=== PATIENT | male | born 1960 | race Caucasian/White ===

== ENCOUNTER 2017-10-05 08:02 | Outpatient (CLI) | payer BC ==
--- NOTE | 2017-10-05 10:08 | MRI ---
NONCONTRAST MRI CERVICAL SPINE: DATE: 10/05/17. HISTORY: Cervical radiculopathy. Neck pain with left arm radiculopathy. Pain for 1 year which is worsening. COMPARISON: None available. FINDINGS: Paravertebral soft tissues have normal signal intensity and demonstrate a normal MRI appearance. Normal signal intensity is demonstrated in the bone marrow. Limited visualized bas of the brain as well as cervicomedullary junction demonstrate a normal MRI nadira earance. C1-2 level: There is no disk bulge or disk herniation Central spinal canal and neural foramen are p atent. C2-3 level: There is no disk bulge or disk herniation Central spinal canal and neural foramen are p atent. C4-5 level: There is minimal disk-osteophyte complex, but the central spinal canal and neural forame n are patent. There is slight effacement of the ventral subarachnoid space. C5-6 level: There is loss of intervertebral disk height. There is a broad-based disk-osteophyte com plex which narrows the ventral subarachnoid space and encroaches on the anterior aspect of the spinal cord. There is mild bilateral neural foraminal narrowing greater on the left. C6-7 level: There is loss of intervertebral disk height. There is a broad-based disk-osteophyte. T here is a broad-based disk-osteophyte complex with resultant mild to moderate narrowing of the centra l spinal canal. There is mild left and mild to moderate right-sided neural foraminal narrowing. C7-T1 level: There is no significant disk bulge or disk herniation. Central spinal canal and neural foramen are patent. T1-2 level: There is minimal disk bulge which narrows the ventral subarachnoid space. Axial imaging was not obtained at this level, but on sagittal images neural foramina do appear patent with only mi nimal encroachment on the right neural foramen. IMPRESSION: Mild degenerative disk changes in the cervical spine greatest at the C6-7 level. POS: GHISLAINE
== END 2017-10-05 08:03 | disposition home or self-care (01) ==
LOC: SCSMRI 08:02
PROVIDERS: ATTEND Family Medicine
DX: M47.22 Other spondylosis with radiculopathy, cervical region (principal)
CPT/HCPCS: 72141

== ENCOUNTER 2019-05-19 07:44 | Outpatient (CLI) | payer BC ==
--- NOTE | 2019-05-19 08:39 | MRI ---
EXAM: MRI lumbar spine without contrast HISTORY: Back pain COMPARISON: None TECHNIQUE: Multiple planar multisequence MR images were obtained of the lumbar spine without contrast . FINDINGS: The vertebral bodies and intervertebral discs demonstrate normal height and alignment without fractur e or subluxation. The prevertebral and paraspinal soft tissues are unremarkable. Endplate degenerative changes are seen surrounding L4/5 and L5/S1. The conus medullaris terminates normally at T12/L1. T12/L1: No significant posterior bulge or protrusion. No posterior facet arthrosis. No central tiffany l stenosis. No neural foraminal stenosis L1/2: No significant posterior bulge or protrusion. No posterior facet arthrosis. No central canal stenosis. No neural foraminal stenosis L2/3: A small central protrusion is seen. Mild bilateral posterior facet arthrosis. Moderate centra l canal stenosis. Mild bilateral neural foraminal stenosis L3/4: Small generalized concentric disc bulge. Mild bilateral posterior facet arthrosis. No central canal stenosis. Mild bilateral neural foraminal stenosis L4/5: A small disc osteophyte complex is seen. Mild bilateral posterior facet arthrosis. No central canal stenosis. Moderate right and mild left neural foraminal stenosis L5/S1: A small disc osteophyte complexes associated with a small central protrusion. Mild bilateral posterior facet arthrosis. Mild central canal stenosis. Moderate bilateral neural foraminal stenosis IMPRESSION: Degenerative changes of the lumbar spine as above.
== END 2019-05-19 07:45 | disposition home or self-care (01) ==
LOC: TBSIIMAG 07:44
PROVIDERS: ATTEND Neurological Surgery
DX: M47.26 Other spondylosis with radiculopathy, lumbar region (principal)
CPT/HCPCS: 72148

== ENCOUNTER 2020-07-29 13:00 | Inpatient (IN) | payer BC ==
[2020-08-09 12:31] VITALS: BMI 35.9
[2020-08-10] MEDS ORDERED: Sodium Chloride 0.9% 100 ML ONE (06:56)
[2020-08-10] MEDS ORDERED: Tranexamic Acid 1,000 MG/10 ML VIAL ONE (06:56)
[2020-08-10] MEDS ORDERED: VANCOMYCIN 2 GRAM/400 ML BAG 2 GM in Premix Bag 1 BAG IVPB SCH (07:00)
[2020-08-10] MEDS ORDERED: Fentanyl 100 MCG/2 ML VIAL ONE ×3 (07:47→09:57)
[2020-08-10] MEDS ORDERED: Midazolam HCl 2 mg/2 ml Vial ONE (07:47)
[2020-08-10] MEDS ORDERED: PROPOFOL 200 MG/20 ML VIAL ONE (09:23)
[2020-08-10] MEDS ORDERED: Bupivacaine HCl 0.5%/Epinephrine 1:200,000/PF 30 ml Vial ONE (09:23)
[2020-08-10] MEDS ORDERED: Rocuronium Bromide 10 MG/ML (10ML VIAL) ONE (09:23)
[2020-08-10] MEDS ORDERED: Ondansetron PF 4 MG/2 ML Vial ONE (09:23)
[2020-08-10] MEDS ORDERED: ePHEDrine 50 MG/ML VIAL ONE (09:23)
[2020-08-10] MEDS ORDERED: Ketorolac Tromethamine 30 MG/ML VIAL ONE (09:23)
[2020-08-10] MEDS ORDERED: Dexamethasone 20 MG/5 ML VIAL ONE (09:23)
[2020-08-10] MEDS ORDERED: traMADol HCl 50 MG TAB PO PRN (11:34)
[2020-08-10] MEDS ORDERED: Promethazine HCl 25 MG/ML VIAL IM PRN ×2 (11:34→11:37)
[2020-08-10] MEDS ORDERED: diphenhydrAMINE 25 MG CAP PO PRN (11:34)
[2020-08-10] MEDS ORDERED: HYDROcodone/Acetaminophen 10/325 mg Tablet PO PRN (11:34)
[2020-08-10] MEDS ORDERED: Zolpidem Tartrate 5 MG TAB PO PRN (11:34)
[2020-08-10] MEDS ORDERED: Acetaminophen 325 MG TAB PO PRN (11:34)
[2020-08-10] MEDS ORDERED: Ondansetron PF 4 MG/2 ML Vial IVP PRN (11:34)
[2020-08-10] MEDS ORDERED: Promethazine HCl 25 MG/ML VIAL SLOW IVP PRN (11:37)
[2020-08-10] MEDS ORDERED: Ondansetron HCl/PF 4 MG/2 ML Vial IVP PRN (11:37)
[2020-08-10] MEDS: CEFAZOLIN 2 GM in Premix Bag 1 BAG IVPB SCH ×2 (17:28→22:38)
[2020-08-10] MEDS: Senokot S 8.6-50 MG TAB PO SCH (20:06)
[2020-08-10] MEDS: Atorvastatin Calcium 40 MG TAB PO SCH (20:06)
[2020-08-10] MEDS: Ferrous Gluconate 324 MG TAB PO SCH (20:06)
[2020-08-10] MEDS: Aspirin 81 mg Enteric Coated Tablet PO SCH (20:06)
[2020-08-11 05:06] LABS: Hemoglobin 11.6 g/dL (14.0-18.0); Mean Corpuscular HGB CONC 34.2 g/dL (32.0-36.0); Mean Corpuscular Hemoglobin 30.7 pg (27.0-31.0); Mean Corpuscular Volume 89.8 fL (78.0-98.0); Mean Platelet Volume 7.4 fL (7.4-10.4); Platelet Count 215 thou/uL (130-400); RBC Distribution Width 12.2 % (11.5-14.5); Red Blood Cell (RBC) Count 3.78 mill/uL (4.70-6.10)
[2020-08-11] MEDS: Aspirin 81 mg Enteric Coated Tablet PO SCH ×3 (08:34→19:32)
[2020-08-11] MEDS: Multivitamin W/ Minerals 1 TAB PO SCH (08:35)
[2020-08-11] MEDS: Fish Oil 1,000 MG CAP PO SCH (08:35)
[2020-08-11] MEDS: Vit A,C & E/Lutein/Minerals Tablet PO SCH (08:35)
[2020-08-11] MEDS: Cholecalciferol 1,000 UNITS (25 MCG) TAB PO SCH (08:35)
[2020-08-11] MEDS: Senokot S 8.6-50 MG TAB PO SCH ×2 (08:35→19:32)
[2020-08-11] MEDS: Losartan 25 MG TAB PO SCH (08:36)
[2020-08-11] MEDS: Folic Acid 1 MG TAB PO SCH (08:36)
[2020-08-11] MEDS: Ferrous Gluconate 324 MG TAB PO SCH ×2 (08:36→19:32)
[2020-08-11] MEDS: Cyanocobalamin (Vitamin B-12) 1,000 MCG TAB PO SCH (08:36)
[2020-08-11] MEDS: HYDROcodone/Acetaminophen 10/325 mg Tablet PO PRN ×2 (08:52→13:16)
[2020-08-11] MEDS: Atorvastatin Calcium 40 MG TAB PO SCH (19:33)
[2020-08-12] MEDS: HYDROcodone/Acetaminophen 10/325 mg Tablet PO PRN ×2 (08:17→15:30)
[2020-08-12] MEDS: Multivitamin W/ Minerals 1 TAB PO SCH (10:39)
[2020-08-12] MEDS: Cholecalciferol 1,000 UNITS (25 MCG) TAB PO SCH (10:39)
[2020-08-12] MEDS: Vit A,C & E/Lutein/Minerals Tablet PO SCH (10:39)
[2020-08-12] MEDS: Senokot S 8.6-50 MG TAB PO SCH (10:39)
[2020-08-12] MEDS: Ferrous Gluconate 324 MG TAB PO SCH (10:40)
[2020-08-12] MEDS: Losartan 25 MG TAB PO SCH (10:40)
[2020-08-12] MEDS: Aspirin 81 mg Enteric Coated Tablet PO SCH ×2 (10:40)
[2020-08-12] MEDS: Fish Oil 1,000 MG CAP PO SCH (10:41)
[2020-08-12] MEDS: Folic Acid 1 MG TAB PO SCH (10:41)
[2020-08-12] MEDS: Cyanocobalamin (Vitamin B-12) 1,000 MCG TAB PO SCH (10:41)
[2020-08-12 12:25] VITALS: TEMP 98.3
[2020-08-12 15:13] VITALS: BP 138/80
== END 2020-08-12 16:19 | disposition home or self-care (01) | DRG 470 ==
LOC: EDSTATUS 08-03 13:00 → SJJU 08-10 06:30
PROVIDERS: ADMIT Orthopaedic Surgery; ATTEND Orthopaedic Surgery
PROC: 0SRB04A Replacement of Left Hip Joint with Ceramic on Polyethylene Synthetic Substitute, Uncemented, Open Approach (ICD-10-PCS; principal; 2020-08-10)
DX: M16.12 Unilateral primary osteoarthritis, left hip (principal); M25.452 Effusion, left hip; M25.752 Osteophyte, left hip; M67.2 Synovial hypertrophy, not elsewhere classified; D64.9 Anemia, unspecified; Z90.49 Acquired absence of other specified parts of digestive tract; Z95.5 Presence of coronary angioplasty implant and graft
CPT/HCPCS: 36415; 85027; J0690; J1100; J1885; J2250; J2405; J2704; J3010; J3490

== ENCOUNTER 2020-08-05 13:10 | Outpatient (CLI) | payer BC | END 2020-08-05 13:11 | disposition home or self-care (01) | LOC: LABBT 13:10 | PROVIDERS: ATTEND Orthopaedic Surgery | DX: Z01.818 Encounter for other preprocedural examination (principal); M16.12 Unilateral primary osteoarthritis, left hip; Z20.822 Contact with and (suspected) exposure to COVID-19 | CPT/HCPCS: 80048; 81001; 85025; 85610; 87081; 87635; 93005; 93010; U0003; U0005 ==